=== PATIENT | female | born 1940 | race Caucasian/White ===

== ENCOUNTER → 2018-09-16 | Outpatient (CLI) | payer OTHER ==
[~2018-09-16] MED LIST: ADULT SUPPOSIT1 EACH; ALPRAZOLAM 0.0.25 M1 PO; ASPIR 8181 MG PO; ASPIRIN EC81 M1 PO; ATORVASTATIN CA40 MG PO; BISACODYL SUPP10 MG RECTAL; CATAFLAM50 MG PO; CIPROFLOXACIN500 M1 PO; CITRACAL + D C1 EACH PO; CLONAZEPAM 0.50.5 M1; CLONAZEPAM 0.50.5 M1 PO; DAIRY AID3000 UNIT PO; EVISTA PO; FENOFIBRATE160 MG PO; FEVERALL650 MG RECTAL; FLAGYL500 MG PO; LEVOTHYROXIN0.125 M1 PO; LISINOPRIL30 MG PO; NORCO 5-325 TA1 EACH PO; NORVASC 5 MG TAB5 MG PO; TOPROL XL25 MG PO; ZOLOFT25 MG PO; ZOLOFT50 MG PO
--- NOTE | ~2018-09-16 | 2DMMODE ---
[facility] [place] [address] 2 D/M-MODE ECHOCARDIOGRAM Name: SANTIJENNIFER K Room #: REG [facility]#: [id number] Admission: 09/16/18 Attend Phys: Physician not on s Discharge: Date of : 36 Date of Service: 09/16/18 1255 Report #: [id number] THIS REPORT FOR: //name// APPROVED REPORT Study performed: 09/16/2018 09:12:49 EXAM: Comprehensive 2D, Doppler, and color-flow Echocardiogram Patient Location: Out-Patient Status: routine BSA: 1.57 HR: 85 bpm BP: 140/69 mmHg Rhythm: NSR Other Information Study Quality: Good Indications LV FUNCTION. POST CHEMO. 2D Dimensions RVDd: 31.60 mm IVSd: 10.75 (7-11mm) LVOT Diam: 20.11 (18-24mm) LVDd: 44.37 mm PWd: 11.11 (7-11mm) LVDs: 32.81 (25-40mm) Aortic Root: 29.61 mm Volumes Left Atrial Volume (Systole) Single Plane 4CH: 29.08 mL Single Plane 2CH: 39.75 mL LA ESV Index: 23.00 mL/m2 Aortic Valve AoV Peak Daren.: 1.62 m/s AO Peak Gr.: 10.43 mmHg LVOT Max P.18 mmHg LVOT Max V: 0.74 m/s TWIN Vmax: 1.45 cm2 Mitral Valve E/A Ratio: 0.6 MV Decel. Time: 468.56 ms MV E Max Daren.: 0.49 m/s [facility] [address] [place] [address] 2 D/M-MODE ECHOCARDIOGRAM Name: JENNIFER HANCOCK Room #: REG [facility]#: [id number] Admission: 09/16/18 Attend Phys: Physician not on s Discharge: Date of : 36 Date of Service: 09/16/18 1255 Report #: [id number] MV A Daren.: 0.82 m/s MV PHT: 135.88 ms IVRT: 78.43 ms Pulmonary Valve PV Peak Daren.: 0.81 m/s PV Peak Gr.: 2.62 mmHg Tricuspid Valve TR Peak Daren.: 1.86 m/s RAP Estimate: 5.00 mmHg TR Peak Gr.: 13.87 mmHg PA Pressure: 19.00 mmHg Left Ventricle The left ventricle is normal size. There is normal LV segmental wall motion. There is normal left ventricular wall thickness. Left ventricular systolic function is normal. LVEF is 50-55%. Mild diastolic dysfunction is present (impaired relaxation pattern). Right Ventricle The right ventricle is normal size. The right ventricular systolic function is normal. Atria The left atrium size is normal. The right atrium size is normal. Aortic Valve Aortic valve leaflets are mildly thickened and calcified. No aortic regurgitation is present. There is no aortic valvular stenosis. Mitral Valve The mitral valve is normal in structure. Mild mitral regurgitation. Tricuspid Valve The tricuspid valve is normal in structure. Trace tricuspid regurgitation. Estimated PAP is 20mmHg. Pulmonic Valve The pulmonary valve is normal in structure. Trace pulmonic regurgitation. Great Vessels The aortic root is normal in size. IVC is normal in size and [facility] [address] [place] [address] 2 D/M-MODE ECHOCARDIOGRAM Name: JENNIFER HANCOCK Room #: REG [facility]#: [id number] Admission: 09/16/18 Attend Phys: Physician not on s Discharge: Date of : 36 Date of Service: 09/16/18 1255 Report #: [id number] collapses >50% with inspiration. Pericardium There is no pericardial effusion. <Conclusion> Left ventricular systolic function is normal. There is normal LV segmental wall motion. LVEF is 50-55%. Mild diastolic dysfunction Aortic valve leaflets are mildly thickened and calcified. No aortic regurgitation or stenosis. The mitral valve is normal in structure. Mild mitral regurgitation. Trace tricuspid regurgitation. Estimated pulmonary artery pressure of 20mmHg. There is no pericardial effusion. <ELECTRONICALLY SIGNED> By: Sigifredo Hancock MD, [facility] 09/16/18 1255 1255 1255 Sigifredo Hancock MD, FACC /INF
== END ==
LOC: CV 07:15
DX: Z09 Encounter for follow-up examination after completed treatment for conditions other than malignant neoplasm (principal); I34.0 Nonrheumatic mitral (valve) insufficiency; C48.2 Malignant neoplasm of peritoneum, unspecified; C57.00 Malignant neoplasm of unspecified fallopian tube; C56.9 Malignant neoplasm of unspecified ovary

== ENCOUNTER 2019-05-27 03:46 | Emergency (ER) | payer OTHER ==
[~2019-05-27] VITALS: Ht 162.6 cm; Wt 52.6 kg
--- NOTE | ~2019-05-27 | EMS ---
[address] [address] EMS Patient Care Report Name: JENNIFER HANCOCK Room #: DEP [facility]#: [id number] Admission: 05/27/19 Attend Phys: Discharge: 05/27/19 Date of : 36 Report #: [id number] THIS REPORT FOR: //name// Report Transmitted: 05/31/2019 08:52 EMS Care Summary [place], [place]/[facility] Incident [id number] @ 05/27/2019 03:20 Incident Location [address] [place], [place] [id number] Patient JENNIFER HANCOCK Female, 78 Years 1940 Patient Address [address] [place], [place] [id number] Patient History Hypertension,Ovarian/Uterine Cancer, Patient Allergies No known allergies, Patient Medications Lisinopril, Chief Complaint Tongue swelling/edema Disposition Transported No Lights/[place] Dispatch Reason Allergic Reaction/Stings Transported To [facility] Narrative 78 y/o female with tongue swelling. On arrival found pt standing at front door of her residence. Pt stated she started noticing swelling to the right side of her tongue at approximately [address] [address] EMS Patient Care Report Name: JENNIFER HANCOCK Room #: DEP [facility]#: [id number] Admission: 05/27/19 Attend Phys: Discharge: 05/27/19 Date of : 36 Report #: [id number] this morning. Pt stated it woke her up. Pt denied any new medication or any other new things that could cause an allergic reaction. Pt was able to speak with no difficulty and had no airway compromise on EMS arrival. Pt stated she wanted to be taken to [facility] ED. Pt stated she did not want an IV during transport. Pt stated that she takes Lisinipril for hypertension. EMS monitored pt/VS en route to [facility] ED. Transferred care of pt to [facility] ED RN without incident. Initial Vitals @03:41P: 73,BP: 137/74,SpO2: 96, @03:35P: 93,R: 18,BP: 150/80,Pain: 0/10,GCS: 15,CO: 0,SpO2: 99,Revised Trauma: 12, Assessments @03:28MENTAL:No Abnormalities,SKIN:No Abnormalities,HEENT:Head/Face: Other,Eyes: No Abnormalities,LUNG SOUNDS:General: No Abnormalities,Left Upper: No Abnormalities,Right Upper: No Abnormalities,Left Lower: No Abnormalities,Right Lower: No Abnormalities,ABDOMEN:General: No Abnormalities,Left Upper: No Abnormalities,Right Upper: No Abnormalities,Left Lower: No Abnormalities,Right Lower: No Abnormalities,PELVIS//GI:No Abnormalities,EXTREMITIES:Capillary Refill: Left Upper: < 2 Sec,Left Arm: No Abnormalities,Right Arm: No Abnormalities,Left Leg: No Abnormalities,Right Leg: No Abnormalities,PULSE:Radial: 2+ Normal,NEURO:No Abnormalities, Impression Edema Procedures @03:28ALS AssessmentResponse: UnchangedSucceeded Timeline 03:18,Call Received 03:18,Dispatch Notified 03:20,Dispatched 03:22,En Route 03:26,On Scene 03:28,At Patient 03:28,ALS Assessment,Response: UnchangedSucceeded, 03:35,BP: 150/80 M,PULSE: 93,RR: 18 R,SPO2: 99 Ox,ETCO2: ,BG: ,PAIN: 0,GCS: 15, 03:37,Depart Scene 03:41,BP: 137/74 M,PULSE: 73,RR: R,SPO2: 96 Ox,ETCO2: ,BG: ,PAIN: ,GCS: , 03:42,At Destination 03:53,Call Closed Disclaimer [address] [address] EMS Patient Care Report Name: JENNIFER HANCOCK [facility] [id number] Admission: 05/27/19 Attend Phys: Discharge: 05/27/19 Date of : 36 Report #: [id number] v1.1 Copyright 2019 [employer] This EMS Care Summary contains data elements from the applicable legal record (which may be displayed differently). It is designed to provide pertinent information for the following purposes: continuity of care, clinical quality, and state data reporting. The complete legal record is available to ED staff and administrators of the receiving hospital in ES's Patient Tracker. All data is provided "as is."
[2019-05-27 03:47] VITALS: BP 126/101
[2019-05-27] MEDS ORDERED: FELODIPINE ER10 MG PO (03:57)
[2019-05-27 05:01] LABS: ABSOLUTE NEUTROPHILS 2.6 thou/uL (1.4-8.2); BASOPHILS 1.3 % (0.0-2.0); HEMATOCRIT 24.1 % (37.0-47.0); HEMOGLOBIN 8.3 gm/dL (12.0-15.0); LYMPHOCYTES 24.4 % (24.0-44.0); MCHC 34.3 g/dL (28.0-37.0); MCV 96.4 fL (80.0-100.0); MONOCYTES 9.8 % (1.0-8.0); PLATELET COUNT 107 thou/uL (150-400); POLYS 61.5 % (36.0-66.0); RDW 16.4 % (10.5-14.5); WBC 4.2 thou/uL (4.0-11.0)
[2019-05-27 05:03] LABS: CALCIUM 9.1 mg/dL (8.5-10.1); CREATININE 2.2 mg/dL (0.6-1.0); POTASSIUM 4.7 mmol/L (3.5-5.1)
[2019-05-27] MEDS ORDERED: PREDNISONE 20 M20 MG PO (05:24)
--- NOTE | 2019-05-27 06:03 | NUR ---
Patient to be admitted to inpatient bed. Patient states, "I can't leave my cat." And "I have responsibilities that I just can't walk away from." Physician in room with education. Encouraged patient to reconsider. Patient states "I understand the risk, I need to go home." Port de-accessed, locked with 500 units of heparin.
[2019-05-27 06:18] VITALS: BP 172/67
== END 2019-05-27 05:40 | disposition home or self-care (01) ==
LOC: ER 03:46 → EROBS 05:06 → ER 05:06
PROVIDERS: Emergency Medicine
DX: T78.3XXA Angioneurotic edema, initial encounter (principal); I10 Essential (primary) hypertension; E78.00 Pure hypercholesterolemia, unspecified; J44.9 Chronic obstructive pulmonary disease, unspecified; Z87.891 Personal history of nicotine dependence; Z79.82 Long term (current) use of aspirin; Z79.899 Other long term (current) drug therapy; Y92.89 Other specified places as the place of occurrence of the external cause

== ENCOUNTER → 2019-08-05 | Outpatient (CLI) | payer OTHER ==
[~2019-08-05] MED LIST changes: +DULCOLAX10 MG RECTAL; +FELODIPINE ER10 MG PO; +FELODIPINE ER2.5 MG PO; +LEVO-T100 MCG PO; +MIRALAX119 GM PO; +PERCOCET 5-3251 EACH PO; +PREDNISONE 20 M20 MG PO; +VITAMIN B-121000 MC2 PO
--- NOTE | 2019-08-12 13:07 | PATH ---
[facility] [address] [place] [address] PATHOLOGY RPT PROCEDURE Name: AUDREY KUO Room #: REG [facility] [place].#: [id number] Admission: 08/05/19 Date of : 36 Discharge: Report #: [id number] Path Case #: [id number] [facility] Accession Number: [id number] . 01 Material submitted: . lymph node - LEFT NECK LYMPH NODE. Modifiers: left . 01 Clinical history: . Enlarged nodes, history of cancer . 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 - Fragments of fibroadipose connective tissue with reactive changes. - No lymph node tissue present. (IUV:tim; 08/11/2019) AZJ 08/11/2019 1036 Local . 02 Comment: Examination shows scattered irregular ductal or glandular proliferation in a background of fibrotic and sclerotic stroma associated with scattered foci of hemorrhage. Chronic inflammation and lymphocytic infiltration of these ducts is noted as well. There is no acinar or definitive salivary gland tissue present. Scattered nerves as well as medium caliber vessels are present as well. Necrosis, increased mitotic activity, or definitive features to confirm a neoplasm are not present. . 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 This lesion was reactive to immunohistochemical stain PAX-8. Based on this, multiple properly controlled immunohistochemical stains are performed. The ductal proliferation shows strong membranous reactivity to CK7. Intact myoepithelial cells are noted with calponin immunohistochemical stain. The glandular proliferation is nonreactive to thyroglobulin, TTF-1, PAX-8, CK20, as well as S100. S100 is reactive within the nerves identified within this biopsy tissue consistent with proper internal controls. The remainder cores show reactive fibroadipose tissue with congestion and hemorrhage. There is no lymph node tissue present for evaluation. A portion of this specimen was sent for flow cytometric analysis and it showed no immunophenotypic evidence of non-Hodgkin B-cell or T-cell lymphoma in a hypercellular sample with markedly decreased viability (26%). The details of this report will be attached in an addendum to follow this current report (please see separate report for complete details). . Based on the morphology, as well as the immunohistochemical stains, this [address] [address] PATHOLOGY RPT PROCEDURE Name: AUDREY KUO Room #: REG [facility]#: [id number] Admission: 08/05/19 Date of : 36 Discharge: Report #: [id number] Path Case #: [id number] lesion may represent a partially sampled atrophic salivary gland or myoepithelial sialadenitis. No calculi are present within this sample. It may represent a degenerative phenomenon or a partially sampled neoplastic process. The case was discussed with Dr. Bennie Narayan (interventional radiologist), who suggested this may certainly represent a submandibular gland. Please note, the sample may not be entirely client services representative; correlate clinically and follow-up as indicated. . This case was co-reviewed with Dr. Adebayo Cox, who concurs with my diagnosis. (IUV:tim; 08/11/2019) . 02 Addendum: . Special studies report received from [facility], [address] [place] [address], [address], [place], [address], on case [id number], labeled with their number [id number], dated 08/07/2019. . Flow Cytometry: Hematologic Neoplasia Assessment . Clinical History Enlarged lymph nodes, unspecified . Indication for Study Evaluation for hematolymphoid neoplasia . Specimen Lymph node, left neck . Viability 26% (7AAD exclusion) . Interpretation Lymph node, left neck: - No immunophenotypic evidence of a non-Hodgkin B-cell or a T-cell lymphoma in a hypocellular sample with markedly decreased viability (26%). See comments. . Comments Hodgkin lymphoma, some large cell lymphomas and some peripheral T-cell lymphomas cannot be categorically excluded by flow cytometric analysis. Additionally, because of the low cell viability (26%), cells of potential interest may have been nonviable and not included in the results of this analysis. Correlation with available clinical, laboratory, and morphologic data is recommended. . This sample is less than 50% viable which is considered suboptimal for routine clinical flow cytometry analysis. The analysis, however, is being reported because the sample is considered irreplaceable. These results [address] [address] PATHOLOGY RPT PROCEDURE Name: AUDREY KUO Room #: REG [facility]#: [id number] Admission: 08/05/19 Date of : 36 Discharge: Report #: [id number] Path Case #: [id number] must be interpreted in the context of all available clinical, laboratory, and morphologic information. . Populations Analyzed Lymphocytes: 4% B-cells: 0.3%, too few B-cells to determine sIg light chain pattern or aberrant antigen expression. T-cells: no significant abnormalities of the markers tested CD4:CD8: 4.7 NK cells: 0.2% Granulocytes: 2% Present Monocytes/ 1% Present Histiocytes: CD45 Negative 92% No significant reactivity with the markers tested Events/Debris: (may represent non-hematolymphoid cells, degenerated cells, debris, unlysed red blood cells, etc.) . Morphologic Evaluation A slide was reviewed for quality and reliability engineer purposes only. . Specimen Description Due to a low cellular viability, an average of 2500 viable events were acquired per tube. Flow cytometry data derived from an acquisition with less than 10,000 viable events needs to be interpreted within the context of all clinical, laboratory, and morphologic data available. . . Reagent(s) Used CD2, CD3, CD4, CD5, CD7, CD8, CD10, CD11b, CD19, CD20, CD23, CD30, CD38, CD43, CD45, CD56, CD57, FMC-7, HLA-DR, kappa, lambda . at [employer] Theron Be MD Pathologist . . Intended Use Flow cytometry is optimally used to immunophenotypically characterize abnormal populations when they are detected. Negative flow cytometry results do not exclude lymphoma or neoplasia. Possible false negative flow cytometry results may occur in, but are not limited to, the following: neoplastic cells in Hodgkin lymphoma are not typically adequately represented by routine clinical flow cytometry; neoplastic cells may be lost or inadequately represented due to degeneration, sample processing, sampling artifact, or patchy involvement; plasma cells are typically underrepresented by flow cytometry; immature cells/blasts may be [facility] [address] [place] [address] PATHOLOGY RPT PROCEDURE Name: AUDREY KUO [facility] [id number] Admission: 08/05/19 Date of : 36 Discharge: Report #: [id number] Path Case #: [id number] underrepresented due to hemodilution; myeloproliferative disorders and low grade myelodysplasia may not have immunophenotypic abnormalities or increased blasts. Correlation with all available clinical, laboratory, and morphologic data is always necessary to assess for the possibility of false negative flow cytometry results and to establish a diagnosis. Each marker in this analysis was used to assess for potential antigenic abnormalities or to evaluate detected abnormalities. . Disclaimer(s) This test was performed at [facility]. at [address], [address] - [employer]ractor [employer] Team[employer]: Darinel Zuñiga MD. [facility] is a business unit of [employer] [facility] a wholly-owned subsidiary of [employer]. . Any image or images that accompany this report are client services representative images only and should not be used to render a diagnosis. . This test was developed and its performance characteristics determined by [facility]. It has not been cleared or approved by the Food and Drug Administration (FDA). The FDA has determined that such clearance or approval is not necessary. . For inquiries, the physician may contact Lab: [phone] . A complete copy of the report is on file. . Professional services performed by [facility]. at [address], [place] [address]. Technical services performed by [facility] at [address], [place] [address]. . (IUV:amj 08/09/2019) . AZJ/08/11/2019 Addendum Electronically Signed by Raina Diggs MD, Pathologist . 02 Electronically signed: . Raina Diggs MD, Pathologist NPI- [id number] . 01 Gross description: . The specimen is received in formalin, labeled "Audrey Kuo, left neck node". Received are three needle cores of pale byrne soft tissue ranging in length from 0.7 to 1.2 cm in length by 0.1 cm in diameter. The specimen is submitted entirely in cassette A1. A portion of the specimen is received in RPMI solution and is forwarded [place] [address] PATHOLOGY RPT PROCEDURE Name: AUTUMN KUOA Sarah Room #: REG CL[facility]#: [id number] Admission: 08/05/19 Date of : 36 Discharge: Report #: [id number] Path Case #: [id number] (CAA; 08/05/2019) QAC/QAC 08/05/2019 1545 Local . 02 Pathologist provided ICD-10: R59.9 . 02 CPT . 128797, K67843, V88225 Specimen Comment: A courtesy copy of this report has been sent to [phone], [phone] Specimen Comment: [phone] Specimen Comment: Report sent to ,DR WILSON / DR DIAZ Specimen Comment: A duplicate report has been generated due to demographic updates. Performed at: [address] [facility] [address], [place] [id number] MD Messi Peck MD Phone: [phone] Performed at: [address] [facility] [id number] MD Raina Diggs MD Phone: [phone]
== END | disposition home or self-care (01) ==
LOC: ULTRA 08:52
DX: R59.0 Localized enlarged lymph nodes (principal); Z79.899 Other long term (current) drug therapy; Z98.890 Other specified postprocedural states

== ENCOUNTER 2019-08-25 12:03 | Day surgery (SDC) | payer OTHER ==
[~2019-08-25] VITALS: Ht 162.6 cm; Wt 50.3 kg
[~2019-08-25 12:03] MED LIST changes: -DULCOLAX10 MG RECTAL; -MIRALAX119 GM PO; -PERCOCET 5-3251 EACH PO
[2019-08-25 13:05] LABS: HEMATOCRIT 24.8 % (37.0-47.0); HEMOGLOBIN 8.4 gm/dL (12.0-15.0); MCH 32.4 pg (26.0-34.0); MCHC 33.7 g/dL (28.0-37.0); MCV 96.1 fL (80.0-100.0); RBC 2.59 mil/uL (4.20-5.00); WBC 4.6 thou/uL (4.0-11.0)
[2019-08-25 13:13] LABS: CALCIUM 8.6 mg/dL (8.5-10.1); POTASSIUM 5.3 mmol/L (3.5-5.1)
[2019-08-25 13:30] VITALS: BP 105/71
--- NOTE | 2019-08-25 16:01 | NUR ---
consult rec'd. pt having sx today and going home postop. Surgeon's office to make any arrangements for home health f/u.
[2019-08-25] MEDS ORDERED: PERCOCET 5-3251 EACH PO (16:17)
[2019-08-25 16:31] VITALS: BP 105/71
[2019-08-25 18:35] VITALS: BP 142/63
--- NOTE | 2019-08-25 19:16 | NUR ---
ASSUMED CARE OF PT AT 1830. PT IS ON 2.0 L OF O2. PT HAS L ABDOMEN DRESSING, NEW PEG TUBE. PT HAS L UPPER CHEST PORT DRY AND INTACT. WILL GIVE REPORT TO NOC NURSE.
[2019-08-25 19:29] VITALS: BP 119/49
[2019-08-26] VITALS (7 sets, daily range): BP systolic 105–148; BP diastolic 47–71
--- NOTE | 2019-08-26 03:36 | NUR ---
ASSUMED PT CARE AT 1915. PT IS ALERT AND ORIENTED X 4. I EDUCATED PT ON THE FALL PRECAUTION. I EDUATED THE PT ABOUT HOW TO USE THE CALL IGHT WELL. PT STATED THAT SHE WILL NOT HAVE THE PEG TUBE IN LONG. I ADMINISTERED ORAL MEDICATION TO THE PT. SHE HAD A DIFFICULT TIME TAKING THE MEDICATION BUT DID GET THE ORAL MEDS DOWN. PT COUGHS EVERYTIME SHE TRIES TO SWALLOW PILLS FOOD OR WATER. WHEN AMBULATING WITH PT TO THE RESTROOM, SHE IS VERY UNSTEADY AND GRABS EVERYTHING. I TOLD THE PT TO CALL WHEN EVER SHE NEEDS TO GET UP. PT TOLERATED PUDDING. WILL CONTINUE TO MONITOR.
[2019-08-26 05:43] LABS: ABSOLUTE NEUTROPHILS 6.3 thou/uL (1.4-8.2); BASOPHILS 0.2 % (0.0-2.0); HEMATOCRIT 23.8 % (37.0-47.0); LYMPHOCYTES 4.5 % (24.0-44.0); MCH 32.7 pg (26.0-34.0); MCHC 33.6 g/dL (28.0-37.0); MCV 97.3 fL (80.0-100.0); PLATELET COUNT 123 thou/uL (150-400); POLYS 90.3 % (36.0-66.0); RBC 2.45 mil/uL (4.20-5.00); RDW 13.7 % (10.5-14.5); WBC 6.9 thou/uL (4.0-11.0)
[2019-08-26 05:59] LABS: CALCIUM 8.5 mg/dL (8.5-10.1); CREATININE 2.1 mg/dL (0.6-1.0); MAGNESIUM 1.3 mg/dL (1.8-2.4); POTASSIUM 5.2 mmol/L (3.5-5.1)
--- NOTE | 2019-08-26 09:16 | NUR ---
TF RECOMMENDATION: 1) Trial 240 ml bolus of Nepro via PEG today. Administer slowly over ~20 mins. 2) To meet 100% nutrition needs, recommend 3.5 cans/day of Nepro formula. 3) Free water in formula only provides ~600 ml/day, recommend an additional ~900 ml/day between free water flushes and/or liquid PO intake for hydration. 4) Provide minimum of 30 ml water flushes before/after each bolus feeding if still drinking liquids PO.
--- NOTE | 2019-08-26 14:45 | NUR ---
PT ADMITTED RELATED TO BIOPSY SOFT PALATE, PLACING FEEDING TUBE (PEG). CM REVIEWED CHART AND SPOKE WITH CARE TEAM. CM MET WITH PT AND FRIEND AT BEDSIDE THIS DAY. PT IS A&O X4. CM ROLE INTRODUCED. PT INDICATED SHE [place] AL[place]. PT INDIATED THERE ARE NO STEPS TO ENTER BUT MULTIPAL STEPS SHE USES DAILY INSIDE. PT INDICATED THAT SHE HAD A ROOMMATE FOR 40 YRS BUT THAT SHE IS AT THE [employer] NOW SO SHE IS ALONE WITH THEIR TWO CATS. 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 PT INDICATED NO DME OR HH HX. PT INDICATED SHE PLANS TO RETURN HOME ONCE MEDICALLY STABLE. CM SPOKE WITH PT ABOUT HOME HEALTH AND ENTERAL TUBE FEEDING UPON DC. SHE DIDN'T HAVE A PREFERENCE FOR PROVIDER. CM SENT REFERALS TO [facility]. AWAITING RESPONSES. CM TO FOLLOW INDICATED WITH DC PLANNING.
--- NOTE | 2019-08-26 15:11 | NUR ---
FAXED REFERRAL TO [facility] SPOKE WITH JULIETTE IN INTAKE SHE RECEIVED REFERRAL AND CAN ACCEPT [facility] TODAY.
--- NOTE | 2019-08-26 16:24 | O ---
[facility] [place] [address] OPERATIVE REPORT Name: JENNIFER HANCOCK Room #: 436-P [facility]..#: [id number] Admission: 08/25/19 Attend Phys: Cesar De Leon MD Discharge: Date of : 36 Report #: [id number] THIS REPORT FOR: //name// CC: Cesra Camacho MD DATE OF SERVICE: 08/25/[address] Genaro Nieves, Dr. Cesar De Leon, Dr. Genaro Huston. PREOPERATIVE DIAGNOSIS: Malnutrition and oral malignancy requiring access for feeding. POSTOPERATIVE DIAGNOSES. Malnutrition and oral malignancy requiring access for feeding. PROCEDURE: Insertion of a feeding gastrostomy. SURGEON: Genaro Nieves MD ANESTHESIA: General. DESCRIPTION OF PROCEDURE: The patient was brought to the operating room and placed on operative table in the supine position. Sequential compression devices were in place for DVT prophylaxis. She received an appropriate preoperative dose of Ancef. The patient underwent a general endotracheal anesthesia. Dr. Cesar De Leon then performed examination and biopsy of an oropharyngeal tumor. Please see Dr. De Leon's dictation for that portion of the procedure. After Dr. De Leon completed his portion of procedure, the abdomen was then prepped and draped in a sterile fashion. Skin and subcutaneous tissue around the upper midline of the abdomen was infiltrated with 0.5% Marcaine. A vertical midline abdominal incision was performed using #10 scalpel blade. Hemostasis obtained using electrocautery. Dissection was carried down through subcutaneous tissue through the midline fascia using the electrocautery. Peritoneum was entered and an examination was then performed; however, it was a very limited examination due to the small incision. There was obvious peritoneal carcinomatosis with miliary tumor deposits throughout most of the peritoneal surface that I could see and feel through a small upper midline incision. I was able to palpate a firm deep tumor within the right lobe of the liver. The stomach was essentially normal and there was no evidence of any duodenal or outlet obstruction or small-bowel obstruction. There was a large right kidney cyst. The gallbladder was essentially normal. After completing this limited examination, I then placed 2 Babcocks on the anterior surface of [facility] [address] [place] [address] OPERATIVE REPORT Name: JENNIFER HANCOCK Room #: 436-P [facility].#: [id number] Admission: 08/25/19 Attend Phys: Cesar De Leon MD Discharge: Date of : 36 Report #: [id number] the stomach and applying gentle traction, I was able to place 2 circumferential 2-0 chromic pursestring sutures. I then made a skin incision in the left upper quadrant of the abdomen and passed a clamp into and then out of the abdominal cavity. I grasped an 18-Anguillan Gordillo catheter and brought it into the abdomen. I then made an anterior gastrotomy inside the 2 concentric pursestring sutures and inserted the Gordillo catheter into the stomach and inflated the balloon with 10 mL of saline. I then circumferentially starting with the anterior pursestring suture tied around the Gordillo catheter gastrostomy tube. I then secured the stomach to the anterior abdominal wall using the 2 pursestring sutures as well as simple interrupted 3-0 silk sutures. I then cinched the catheter and the balloon up to the abdominal wall and irrigated with saline solution with free flow into the abdomen with return of gastric contents slightly bile-tinged. I then further infiltrated the abdominal wall fascia, peritoneum with the 0.5% Marcaine. I then closed the midline fascia using a running #1 PDS suture. Subcutaneous tissue was then reapproximated using simple interrupted 0 chromic sutures and the skin then closed with a running 4-0 subcuticular Vicryl stitch. The gastrostomy tube was secured to the skin with a 3-0 nylon suture. The midline incision was dressed with Dermabond wound glue, Telfa, drain sponge, 4 x 4 gauze sponge and tape. Dr. De Leon then performed reexamination of the oropharynx and there was no evidence of any ongoing bleeding. The patient was then awakened from the general endotracheal anesthesia, extubated, and taken to recovery room in good condition. Estimated blood loss for the gastrostomy portion of the procedure was approximately 10 mL and the patient tolerated procedure well. All sponge, lap and instrument counts correct x 2. <ELECTRONICALLY SIGNED> By: Genaro Nieves MD 08/26/19 1624 1616 1628 Genaro Nieves MD /nt
--- NOTE | 2019-08-26 16:31 | NUR ---
[facility] WITH [facility] INDICATED THAT THEY CAN ACCEPT PT AND CONTACTED HER TO [facility] DELIVERY OF A CASE TO PT'S HOSPITAL ROOM BUT PT REFUSES THEY OFFERED TO DELIVER IT TO HER HOUSE BUT SHE REFUSED AGAIN. [facility] HAS HER CELL PHONE NUMBER TO [facility]RANGE DELIVERY UPON DC. IF PT DISCHARGES HOME THE HOPE WOULD BE THAT UNIT CAN PROVIDE SOME FEEDING SUPPLIES FOR PT TO USE. [facility] ACCEPTED PT. FAX FINAL ORDERS TO [facility] . FAX ORDERS TO [facility] AT . PT MIGHT NEED TRANSPORT HOME PLEASE CONTACT CAB TO BE VOUCHERED.
--- NOTE | 2019-08-26 17:04 | EKG ---
[address] [address] ELECTROCARDIOGRAM REPORT Name: JENNIFER HANCOCK Room #: 436-P [facility]#: [id number] Admission: 08/25/19 Attend Phys: Cesar De Leon MD Discharge: Date of : 36 Report #: [id number] THIS REPORT FOR: //name// [facility] Test Date: 2019-08-25 Test Time: 12:40:16 Pat Name: JENNIFER HANCOCK Department: Room: Gender: F Software Engineer Backend: ZENIA : 1940 Requested By: Cesar De Leon Order Number: [id number] MD: Sigifredo Hancock Measurements Intervals Jackson Rate: 57 P: 54 AR: 233 QRS: 44 QRSD: 137 T: 32 QT: 464 QTc: 452 Interpretive Statements Sinus rhythm Prolonged AR interval Nonspecific intraventricular conduction delay Poor R wave progression No previous ECG available for comparison Electronically Signed On 08-26-2019 17:04:39 TEACHER'S AIDE by Sigifredo Hancock [email or web address] <ELECTRONICALLY SIGNED> By: Sigifredo Hancock MD, [facility] 08/26/19 1704 1240 1240 Sigifredo Hancock MD, FACC /EPI
--- NOTE | 2019-08-26 17:24 | NUR ---
PATIENT VERY ANXIOUS TODAY BECAUSE SHE WAS WORRIED ABOUT HER CATS AND WANTED TO GO HOME. UP WITH MINIMAL ASSISTANCE TO BATHROOM. VOIDING WITHOUT DIFFICULTY AND IN ADEQUATE AMOUNTS. INSTRUCTED PATIENT ON HOW TO DO TUBE FEEDINGS. HAD LARGE RESIDUAL FROM PEG SO GAVE ONLY 60 ML NEPRO, FOLLOWED BY 100ML WATER. PATIENT HAVING SEVERE HEARTBURN. DR. RODRIGUES VISITED THIS AFTERNOON AND GAVE THE OK TO GO HOME. REFUSED REGLAN AND DULCOLAX SUPPOSITORY. ALSO REFUSED MG BOLUS AND PATIROMER THIS AM. PATIENT STATED MG CAUSES DIARRHEA AND SHE IS AFRAID IF TAKES PATIROMER HER POTASSIUM WILL GO TOO LOW SHE HAS A LOW POTASSIUM CHRONICALLY AND ALSO A LOW MG CHRONICALLY. PEG SITE LOOKS GOOD WITH NO BLEEDING OR REDNESS. APPLIED CLEAN DRESSING. INCISION TO RIGHT ABD WELL APPROXIMATED WITH NO REDNESS, EDEMA OR DRAINAGE. INCISION HUMAN SERVICES WORKER. DISCHARGE INSTRUCTIONS GIVEN TO PATIENT ALONG WITH PRESCRIPTION FOR OXYCODONE. DISCHARGED VIA CAB VOUCHER TO HOME IN STABLE CONDITION.
--- NOTE | 2019-08-26 19:39 | NUR ---
PT CARE ASSUMED APPROX 0700. A&Ox4. PT CONCERNED ABOUT DISCHARGE DUE TO ANIMALS AT HOME NEEDING CARE. PT. REFUSED MAGNESIUM. CALLED THAT PLACED PEG TUBE TO SEE IF IT WAS OK TO RUN TUBE FEEDING. HEARD BACK SAID IT WAS OK TO START. PT CARE HANDED OVER TO ARVIN RN APPROX. 1100
--- NOTE | 2019-08-27 12:34 | NUR ---
LATE ENTRY FROM 08/26/19 AT 1700 FAXED FINAL DC ORDERS TO [facility] AND TO [facility] FOR ENTERAL. INSTRUCTED RN TO PROVIDE PT WITH STARTER SUPPLY OF ENTERAL NUTRITION. CASE DISCUSSED WITH DR RODRIGUES & HE GAVE OK FOR PT TO DC TODAY.
--- NOTE | 2019-08-30 07:44 | O ---
[facility] [place] [place] [address] OPERATIVE REPORT Name: JENNIFER HANCOCK Room #: DEP [facility].#: [id number] Admission: 08/25/19 Attend Phys: Cesar De Leon MD Discharge: 08/26/19 Date of : 36 Report #: [id number] THIS REPORT FOR: //name// CC: Cesar Camacho MD DATE OF SERVICE: 08/25/2019 PREOPERATIVE DIAGNOSIS: Oropharyngeal lesion. 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 SURGEON: Cesar De Leon MD ANESTHESIA: General endotracheal. PROCEDURE PERFORMED: Biopsy of oropharynx, direct laryngoscopy. FINDINGS: Large exophytic and ulcerative mass exists in oropharynx. It has eroded the uvula in the midline and has eroded into the majority of the free margin of the oral surface of the soft palate as well as portions of the nasopharyngeal surface of the soft palate. The ulcerations extend over to both the tonsil tissue with ulceration and firmness of both tonsils. It also spreads into the posterior oropharyngeal wall on both the left and right sides, essentially obliterating the posterior tonsillar pillars with tumor load. Majority of the soft palate is thickened and firm to palpation with ulceration existing mainly along the free inferior borders. The hypopharynx and the larynx appear to be spared from this as is the nasopharyngeal wall. TECHNIQUE: After obtaining consent, she was brought to the operating suite, appropriate time-out was performed. General anesthesia was obtained with the oral endotracheal tube. The bed was turned 90 degrees. He was placed in a slight neck hyperextension position. Palpation of the tongue base was unremarkable. A McIvor mouth gag was used to open the oral cavity and suspended from the Sanches stand. Inspection was as noted above. A 2 mL of 1% Xylocaine 1:100,000 epinephrine injected into the mass of the posterior oropharyngeal wall bilaterally as well as into the soft palate. Multiple biopsies were taken from multiple locations with cup forceps. Minimal bleeding was noted. Frozen section returned as invasive squamous cell carcinoma. Several other pieces were taken for permanent sectioning as well. Hemostasis was not an issue, was easily controlled with cottonoids soaked with adrenaline. [facility] [address] [place] [address] OPERATIVE REPORT Name: JENNIFER HANCOCK Room #: DEP [facility].#: [id number] Admission: 08/25/19 Attend Phys: Cesar De Leon MD Discharge: 08/26/19 Date of : 36 Report #: [id number] I removed the McIvor mouth gag and advanced the Dedo laryngoscope into the hypopharynx. The base of tongue appeared unremarkable. The piriform mucosa appeared unaffected. The posterior hypopharyngeal wall appeared unremarkable as the tumor appears to go just to the level of the base of tongue on the posterior wall of the oropharynx. The postcricoid space appeared unremarkable. The lingual and laryngeal surfaces of the epiglottis appeared to be clear. At this point, I turned the patient over to Dr. Genaro Nieves who is going to perform abdominal portion of the procedure. This will be dictated on a separate dictation. <ELECTRONICALLY SIGNED> By: Cesar De Leon MD 08/30/19 0744 1522 1537 Cesar De Leon MD /nt
--- NOTE | 2019-08-30 17:06 | PATH ---
[facility] [place] [address] PATHOLOGY RPT PROCEDURE Name: AUDREY HANCOCK Room #: DEP [facility].#: [id number] Admission: 08/25/19 Date of : 36 Discharge: 08/26/19 Report #: [id number] Path Case #: [id number] [facility] Accession Number: [id number] . 01 Material submitted: . PART A: pharynx - ORAL PHARYNX - FS PART B: pharynx - ORAL PHARYNX . 01 Clinical history: . Unspecified protein-calorie malnutrition History of ovarian carcinoma, and mass on both tonsils sampled right now . 02 Frozen section diagnosis: . FROZEN SECTION DIAGNOSIS (Raina Diggs MD) . FSA1, Oral pharynx, biopsy: - SQUAMOUS CELL CARCINOMA. . These findings are discussed with Dr. Cesar De Leon in OR-2 at [facility] and a written report in placed in the patient's chart. . Frozen section performed at [facility], [address], [place] [address]. . . GROSS DESCRIPTION A. The specimen is received fresh from the OR labeled with the patient's name, and "oral pharynx", consists of multiple red-byrne fragments of tissue measuring an aggregate of 0.6 x 0.6 x 0.1 cm. Submitted entirely for frozen section as FSA1. This is subsequently submitted for permanent sections as A1. (IUV:tim; 08/25/2019) IZV/QMS . 02 Diagnosis: A. "Oral pharynx", biopsy: - SQUAMOUS CELL CARCINOMA, INVASIVE, FOCALLY KERATINIZING, ULCERATED. . B. "Oral pharynx", biopsy: - SQUAMOUS CELL CARCINOMA, INVASIVE, FOCALLY KERATINIZING, ULCERATED. (CLW:[facility] 08/27/2019) QTP 08/27/2019 1227 Local . 02 Comment: Immunohistochemical stains for p16 are pending and will be reported as an addendum. The case is co-reviewed with Dr. Raina Diggs. Clinical [address] [address] PATHOLOGY RPT PROCEDURE Name: AUDREY HANCOCK Room #: DEP [facility] Dioni#: [id number] Admission: 08/25/19 Date of : 38 Discharge: 08/26/19 Report #: [id number] Path Case #: [id number] correlation is recommended. (CLW:pit; 08/27/2019) . 02 Addendum: . Properly controlled immunohistochemical stains are performed. . P16 (block A1): Patchy strong staining (a majority of tumor cells are nonreactive, small foci of strongly staining tumor cells are noted). . P16 (block B1): Patchy strong staining (a majority of tumor cells are nonreactive, small foci of strongly staining tumor cells are noted). . . Clinical correlation is recommended. (CLW:tim; 08/30/2019) . . Professional services performed by [facility] [address] at [facility], [address] [address]. Technical services performed by [address] at [address] [place] [address], [address], [place] [address]. LBQ/08/30/2019 Addendum Electronically Signed by Merly Bruce MD, Pathologist . 02 Electronically signed: . Merly Bruce MD, Pathologist NPI- [id number] . 01 Gross description: . A. Gross description dictated by the pathologist and located under the Frozen Section heading. . B. Received in formalin labeled "Brown, Audrey, oral pharynx," are multiple fragments of byrne-brown soft tissue measuring 1.1 x 0.5 x 0.2 cm in aggregate dimensions and ranging from 0.2 to 0.3 cm in maximum dimension. The specimen is submitted entirely in cassette B1. ([facility]; 08/26/2019) XDC/XNH 08/26/2019 0709 Local . 02 Pathologist provided ICD-10: C14.0, J39.2 . 02 CPT . 988824, 417958, 485535, N78883 Specimen Comment: A courtesy copy of this report has been sent to [phone], [phone] Specimen Comment: [phone], Specimen Comment: Report sent to ,DR RODRIGUES / DR DIAZ Specimen Comment: A duplicate report has been generated due to demographic [facility] [address] [place] [address] PATHOLOGY RPT PROCEDURE Name: AUDREY HANCOCK Room #: DEP [facility] MindyR.#: [id number] Admission: 08/25/19 Date of : 36 Discharge: 08/26/19 Report #: [id number] Path Case #: [id number] updates. Performed at: 01 [facility] [address], [place], [place] [id number] MD Messi Peck MD Phone: [phone] Performed at: 02 [facility] [place] [address] [place], [place] [id number] MD Raina Diggs MD Phone: [phone]
== END 2019-08-26 17:00 | disposition home or self-care (01) ==
LOC: OR 12:03 → 4S 18:19 → OR 08-26 17:00
PROVIDERS: Nurse Practitioner; Otolaryngology
DX: K13.79 Other lesions of oral mucosa (principal); C10.3 Malignant neoplasm of posterior wall of oropharynx; E46 Unspecified protein-calorie malnutrition; I10 Essential (primary) hypertension; E03.9 Hypothyroidism, unspecified; Z88.8 Allergy status to other drugs, medicaments and biological substances; Z79.899 Other long term (current) drug therapy; Z90.710 Acquired absence of both cervix and uterus; Z98.0 Intestinal bypass and anastomosis status; Z98.890 Other specified postprocedural states; Z85.43 Personal history of malignant neoplasm of ovary
CPT/HCPCS: 10102; 50010; 50101; 50386; 50403; 56524; 56526; 56527; 62110; 62900; 70005

== ENCOUNTER 2019-08-29 14:15 | Emergency (ER) | payer OTHER ==
[~2019-08-29] VITALS: Ht 162.6 cm; Wt 52.6 kg
[~2019-08-29 14:15] MED LIST changes: +PERCOCET 5-3251 EACH PO
[2019-08-29] MEDS ORDERED: LEVO-T100 MCG PO (14:53)
[2019-08-29] MEDS ORDERED: MIRALAX119 GM PO (15:23)
[2019-08-29] MEDS ORDERED: DULCOLAX10 MG RECTAL (15:23)
[2019-08-29 16:18] VITALS: BP 167/64
== END 2019-08-29 16:09 | disposition home or self-care (01) ==
LOC: ER 14:15
DX: K59.00 Constipation, unspecified (principal); I10 Essential (primary) hypertension; E03.9 Hypothyroidism, unspecified; Z90.710 Acquired absence of both cervix and uterus; Z87.891 Personal history of nicotine dependence; Z88.8 Allergy status to other drugs, medicaments and biological substances

== ENCOUNTER 2019-10-10 11:36 | Emergency (ER) | payer OTHER ==
[~2019-10-10] VITALS: Ht 162.6 cm; Wt 52.6 kg
[~2019-10-10 11:36] MED LIST changes: +DULCOLAX10 MG RECTAL; +MIRALAX119 GM PO
[2019-10-10 13:30] VITALS: BP 122/80
== END 2019-10-10 13:30 | disposition home or self-care (01) ==
LOC: ER 11:36
DX: Z43.1 Encounter for attention to gastrostomy (principal); I10 Essential (primary) hypertension; E03.9 Hypothyroidism, unspecified; Z90.710 Acquired absence of both cervix and uterus; Z87.891 Personal history of nicotine dependence; Z88.8 Allergy status to other drugs, medicaments and biological substances

== ENCOUNTER 2019-10-11 06:46 | Emergency (ER) | payer OTHER ==
[~2019-10-11] VITALS: Ht 162.6 cm; Wt 52.2 kg
[2019-10-11 07:47] VITALS: BP 110/81
== END 2019-10-11 07:50 | disposition home or self-care (01) ==
LOC: ER 06:46
DX: K94.23 Gastrostomy malfunction (principal); I10 Essential (primary) hypertension; E03.9 Hypothyroidism, unspecified; Z90.710 Acquired absence of both cervix and uterus; Z85.43 Personal history of malignant neoplasm of ovary; Z87.891 Personal history of nicotine dependence; Z88.8 Allergy status to other drugs, medicaments and biological substances